=== PATIENT | female | born 1990 | race Caucasian/White ===

== ENCOUNTER → 2025-10-02 11:28 | Outpatient (BNVA) | payer OTHER, SELFPAY | PROVIDERS: Visit Provider Emergency Medicine | DX: S80.01XA Contusion of right knee, initial encounter (principal); W50.0XXA Accidental hit or strike by another person, initial encounter; Z02.79 Encounter for issue of other medical certificate | CPT/HCPCS: 73562; 99203 ==

== ENCOUNTER → 2025-10-05 09:59 | Outpatient (BNVA) | payer OTHER, SELFPAY | PROVIDERS: Visit Provider Emergency Medicine | DX: M23.91 Unspecified internal derangement of right knee (principal); S80.01XA Contusion of right knee, initial encounter; W50.0XXA Accidental hit or strike by another person, initial encounter; Z02.79 Encounter for issue of other medical certificate | CPT/HCPCS: 99213 ==

== ENCOUNTER → 2025-10-08 10:06 | Outpatient (BNVA) | payer OTHER, SELFPAY | PROVIDERS: Visit Provider Emergency Medicine | DX: M23.91 Unspecified internal derangement of right knee (principal) | CPT/HCPCS: 99213 ==